=== PATIENT | female | born 1990 ===

== ENCOUNTER 2020-06-28 22:24 | Emergency (ER) | payer SELFPAY ==
[~2020-06-28] VITALS: Ht 152.4 cm; Wt 73.4 kg
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
[2020-06-28 23:24] VITALS: BP 113/81
[2020-06-28] MEDS ORDERED: METHOCARBAMOL 750 MG TABLET ONE (23:26)
[2020-06-28] MEDS ORDERED: KETOROLAC 30 MG/1 ML IM ONE (23:30)
[2020-06-28] MEDS ORDERED: METHOCARBAMOL 750 MG TABLET PO ONE (23:30)
== END 2020-06-29 00:51 | disposition home or self-care (01) ==
LOC: ED 23:30
DX: S16.1XXA Strain of muscle, fascia and tendon at neck level, initial encounter (principal); R51.9 Headache, unspecified; M54.6 Pain in thoracic spine; V49.49XA Driver injured in collision with other motor vehicles in traffic accident, initial encounter; Y93.89 Activity, other specified; Y92.89 Other specified places as the place of occurrence of the external cause; Y99.8 Other external cause status
CPT/HCPCS: 99283